=== PATIENT | female | born 1935 | race Caucasian/White ===

== ENCOUNTER 2019-04-23 07:38 | Observation (INO) | payer MEDICARE, OTHER ==
[~2019-04-23] VITALS: Ht 157.5 cm; Wt 72.2 kg
[2019-04-23 08:15] VITALS: BP 188/98
[2019-04-23] MEDS ORDERED: SODIUM CHLORIDE 0.9% 1,000 ML IV SCH (08:17)
[2019-04-23] MEDS ORDERED: FENTANYL PF 100 MCG/2ML ONE (09:56)
[2019-04-23] MEDS ORDERED: NALOXONE 1 MG/ML, 2ML ONE (09:57)
[2019-04-23] MEDS ORDERED: FLUMAZENIL 0.1 MG/1 ML, 5ML ONE (09:57)
[2019-04-23] MEDS ORDERED: MIDAZOLAM 1 MG/ML, 5ML ONE (09:57)
[2019-04-23] MEDS ORDERED: LIDOCAINE-MPF 1%, 5ML ONE ×2 (10:58→11:02)
[2019-04-23] MEDS ORDERED: HYDROcodone/APAP 5/325 TABLET ONE (12:11)
[2019-04-23] MEDS ORDERED: ONDANSETRON ODT 4 MG PO PRN (13:00)
[2019-04-23] MEDS ORDERED: ACETAMINOPHEN 325 MG TABLET PO PRN (13:00)
[2019-04-23] MEDS ORDERED: morphine SULFATE 10 MG/ML, 1ML IVPush PRN (13:00)
[2019-04-23] MEDS ORDERED: ONDANSETRON 2MG/ML, 2ML IVPush PRN (13:00)
[2019-04-23] MEDS ORDERED: hydrALAzine 20 MG/ML, 1ML IVPush PRN (13:00)
[2019-04-23] MEDS ORDERED: LABETALOL 5MG/ML, 20ML IVPush PRN (13:00)
[2019-04-23] MEDS ORDERED: HYDROcodone/APAP 5/325 TABLET PO ONE (13:00)
[2019-04-23 14:00] VITALS: BP 147/71
[2019-04-23] MEDS: INSULIN LISPRO 100 UNITS/ML, PEN SQ-INSULIN SCH ×2 (16:06→20:41)
[2019-04-23 16:16] LABS: BASOPHILS # (AUTO) 0.01 x10^3/uL (0-0.1); BASOPHILS % (AUTO) 0 % (0-1); EOSINOPHILS # (AUTO) 0.34 x10^3/uL (0-0.4); EOSINOPHILS % (AUTO) 5 % (1-7); LYMPHOCYTES # (AUTO) 1.14 x10^3/uL (1-3.4); LYMPHOCYTES % (AUTO) 17 % (22-44); MD NO; MEAN CORPUSCULAR HEMOGLOBIN 33.9 pg (27.0-34.8); MEAN CORPUSCULAR HGB CONC 33.8 g/dL (32.4-35.8); MEAN CORPUSCULAR VOLUME 100.2 fL (80-100); MEAN PLATELET VOLUME 7.7 fL (7.4-10.4); MONOCYTES # (AUTO) 0.71 x10^3/uL (0.2-0.8); MONOCYTES % (AUTO) 10 % (2-9); NEUTROPHILS # (AUTO) 4.64 x10^3/uL (1.8-6.8); NEUTROPHILS % (AUTO) 68 % (42-75); PLATELET COUNT 230 x10^3/uL (130-400); RED BLOOD COUNT 3.56 x10^6/uL (3.82-5.3); RED CELL DISTRIBUTION WIDTH 12.7 % (9.6-15.2)
[2019-04-23 16:27] LABS: ALANINE AMINOTRANSFERASE 51 U/L (12-78); ALBUMIN 2.8 g/dL (3.4-5.0); ANION GAP 4 mmol/L (5-15); CALCIUM 8.5 mg/dL (8.5-10.1); CHLORIDE 112 mmol/L (98-107); CREATININE 1.06 mg/dL (0.55-1.02)
[2019-04-23 16:30] LABS: ALKALINE PHOSPHATASE 113 U/L (45-117); BILIRUBIN,TOTAL 0.6 mg/dL (0.2-1.0); TOTAL PROTEIN 5.9 g/dL (6.4-8.2)
[2019-04-23] MEDS ORDERED: ROSU20TA2 PO (17:11)
[2019-04-23] MEDS ORDERED: SPIR25TA5 PO (17:11)
[2019-04-23] MEDS ORDERED: TERA1CAP3 PO (17:11)
[2019-04-23] MEDS ORDERED: METF500T17 PO (17:11)
[2019-04-23] MEDS ORDERED: LEVO75TA5 PO (17:11)
[2019-04-23] MEDS ORDERED: SERT50TA28 PO (17:11)
[2019-04-23] MEDS ORDERED: LOSA100T2 PO (17:11)
[2019-04-23] MEDS ORDERED: METO200T47 PO (17:11)
[2019-04-23] MEDS: HYDROcodone/APAP 5/325 TABLET PO PRN (18:49)
[2019-04-23 20:15] VITALS: BP 125/64
[2019-04-23] MEDS: TEMPLATE NON-FORMULARY MED. (Rosuvastatin Calcium** (Crestor**) 20 MG) PO SCH (20:41)
[2019-04-24 00:15] VITALS: BP 154/82
[2019-04-24] MEDS: INSULIN LISPRO 100 UNITS/ML, PEN SQ-INSULIN SCH ×4 (07:00→20:55)
[2019-04-24 07:20] VITALS: BP 160/68
[2019-04-24] MEDS: METOPROLOL SUCCINATE 100 MG TAB.ER.24H PO SCH (08:01)
[2019-04-24] MEDS: SERTRALINE 50MG TABLET PO SCH (08:01)
[2019-04-24] MEDS: TERAZOSIN 1MG CAPSULE PO SCH (08:01)
[2019-04-24] MEDS: HYDROcodone/APAP 5/325 TABLET PO PRN ×2 (08:02→18:07)
[2019-04-24] MEDS: SPIRONOLACTONE 25 MG TABLET PO SCH (08:02)
[2019-04-24] MEDS: LEVOTHYROXINE 75 MCG TABLET PO SCH (08:02)
[2019-04-24 08:40] LABS: ALBUMIN 2.9 g/dL (3.4-5.0); ANION GAP 4 mmol/L (5-15); CALCIUM 8.9 mg/dL (8.5-10.1); CHLORIDE 107 mmol/L (98-107)
[2019-04-24 08:49] LABS: ALANINE AMINOTRANSFERASE 52 U/L (12-78); ALKALINE PHOSPHATASE 119 U/L (45-117); BILIRUBIN,TOTAL 0.7 mg/dL (0.2-1.0); TOTAL PROTEIN 6.1 g/dL (6.4-8.2)
[2019-04-24 14:00] VITALS: BP 142/67
[2019-04-24 19:58] VITALS: BP 145/70
[2019-04-24] MEDS: TEMPLATE NON-FORMULARY MED. (Rosuvastatin Calcium** (Crestor**) 20 MG) PO SCH (20:56)
[2019-04-25 03:37] VITALS: BP 167/81
[2019-04-25 05:43] LABS: ANION GAP 2 mmol/L (5-15); CALCIUM 8.9 mg/dL (8.5-10.1); CHLORIDE 109 mmol/L (98-107); CREATININE 1.03 mg/dL (0.55-1.02)
[2019-04-25] MEDS: HYDROcodone/APAP 5/325 TABLET PO PRN (06:42)
[2019-04-25] MEDS: INSULIN LISPRO 100 UNITS/ML, PEN SQ-INSULIN SCH ×3 (07:00→16:00)
[2019-04-25 07:05] VITALS: BP 153/68
[2019-04-25] MEDS: METOPROLOL SUCCINATE 100 MG TAB.ER.24H PO SCH (08:21)
[2019-04-25] MEDS: SPIRONOLACTONE 25 MG TABLET PO SCH (08:22)
[2019-04-25] MEDS: SERTRALINE 50MG TABLET PO SCH (08:22)
[2019-04-25] MEDS: LEVOTHYROXINE 75 MCG TABLET PO SCH (08:22)
[2019-04-25] MEDS ORDERED: AMLODIPINE 5 MG TABLET PO SCH (09:00)
[2019-04-25] MEDS: TERAZOSIN 1MG CAPSULE PO SCH (09:55)
[2019-04-25 14:00] VITALS: BP 128/66
[2019-04-25] MEDS ORDERED: ACET325T14 PO (16:28)
[2019-04-25 17:01] VITALS: BP 146/69
== END 2019-04-25 17:05 | disposition home or self-care (01) ==
LOC: OUT 07:38 → EDSTATUS 09:30 → OUT 12:30 → 4NOR 12:31
PROVIDERS: ADMIT Thoracic Surgery (Cardiothoracic Vascular Surgery); ATTEND Thoracic Surgery (Cardiothoracic Vascular Surgery)
DX: J93.83 Other pneumothorax (principal); I10 Essential (primary) hypertension; E78.5 Hyperlipidemia, unspecified; E11.9 Type 2 diabetes mellitus without complications; F41.9 Anxiety disorder, unspecified; Z85.118 Personal history of other malignant neoplasm of bronchus and lung; Z79.84 Long term (current) use of oral hypoglycemic drugs; Z79.82 Long term (current) use of aspirin; Z79.899 Other long term (current) drug therapy; Z90.2 Acquired absence of lung [part of]
CPT/HCPCS: 32405; 32551; 32557; 36415; 71045; 77012; 80048; 80053; 82962; 84443; 85025; 88305; 88341; 88342; 96372; 96374; 99156; C1729; C1769; G0378; J1815; J2250; J2270; J3010; 99157; J2310